=== PATIENT | male | born 1950 | race Caucasian/White ===

== ENCOUNTER 2019-11-15 16:11 | Emergency (ER) | payer OTHER ==
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
--- NOTE | 2019-11-15 17:43 | RAD REPORT ---
EXAM DESCRIPTION: Tony Feldman And Merrill (2 Views)11/15/2019 5:35 pm CLINICAL HISTORY: Chest pain COMPARISON: 2018 FINDINGS: The lungs appear clear of acute infiltrate. The heart is normal size. Old rib fractures v isualized. Chronic opacity overlies the right lung IMPRESSION: No acute abnormalities displayed
--- NOTE | 2019-11-15 17:59 | EDPHYS ---
Physician Documentation [facility] Name: Baldomero Arnold Jr Age: 69 yrs Sex: Male : 1950 Arrival Date: 11/15/2019 Time: 16:13 Bed 5 Private MD: Cheikh Olivera ED Physician Rajeev Larsen HPI: 11/14 17:56 This 69 yrs old Male presents to ER via Ambulatory with complaints of Fall ma2 Injury, Rib Pain. 17:56 Onset: The symptoms/episode began/occurred suddenly, 1 hour(s) ago. Severity of ma2 symptoms: At their worst the symptoms were mild, in the emergency department the symptoms are unchanged. The patient has experienced a previous episode. Historical: - Allergies: 16:44 No Known Allergies; ca1 - PMHx: 16:44 Hyperlipidemia; Hypertension; Crohn's; ca1 - PSHx: 16:44 Colostomy; ca1 - Immunization history:: Adult Immunizations up to date. - Social history:: Smoking status: Patient denies any tobacco usage or history of. - Family history:: not pertinent. ROS: 17:56 Constitutional: Negative for fever, chills, and weight loss. ma2 17:56 All other systems are negative. Exam: 17:56 Constitutional: This is a well developed, well nourished patient who is awake, alert, ma2 and in no acute distress. ENT: Nares patent. No nasal discharge, no septal abnormalities noted. Tympanic membranes are normal and external auditory canals are clear. Oropharynx with no redness, swelling, or masses, exudates, or evidence of obstruction, uvula midline. Mucous membranes moist. Neck: Trachea midline, no thyromegaly or masses palpated, and no cervical lymphadenopathy. Supple, full range of motion without nuchal rigidity, or vertebral point tenderness. No Meningismus. Chest/axilla: ttp over left lateral ribs 9-10Normal chest wall appearance and motion. Nontender with no deformity. No lesions are appreciated. Cardiovascular: Regular rate and rhythm with a normal S1 and S2. No gallops, murmurs, or rubs. Normal PMI, no JVD. No pulse deficits. Respiratory: Lungs have equal breath sounds bilaterally, clear to auscultation and percussion. No rales, rhonchi or wheezes noted. No increased work of breathing, no retractions or nasal flaring. Abdomen/GI: Soft, non-tender, with normal bowel sounds. No distension or tympany. No guarding or rebound. No evidence of tenderness throughout. MS/ Extremity: Pulses equal, no cyanosis. Neurovascular intact. Full, normal range of motion. Neuro: Awake and alert, GCS 15, oriented to person, place, time, and situation. Cranial nerves II-XII grossly intact. Motor strength 5/5 in all extremities. Sensory grossly intact. Cerebellar exam normal. Normal gait. Vital Signs: 16:41 BP 153 / 63; Pulse 61; Resp 14 S; Temp 98.5(TE); Pulse Ox 98% on R/A; Weight 86.18 kg ca1 (R); Height 5 ft. 10 in. (177.80 cm) (R); Pain 5/10; 17:54 BP 144 / 61; Pulse 54; Resp 16; Pulse Ox 98% on R/A; ca1 16:41 Body Mass Index 27.26 (86.18 kg, 177.80 cm) ca1 MDM: 16:33 Patient medically screened. ma2 17:56 Differential diagnosis: abrasion, contusion. Data reviewed: vital signs, nurses notes. ma2 Counseling: I had a detailed discussion with the patient and/or guardian regarding: the historical points, exam findings, and any diagnostic results supporting the discharge/admit diagnosis, the presence of at least one elevated blood pressure reading (>120/80) during this emergency department visit, the need for outpatient follow up. Response to treatment: the patient's symptoms have markedly improved after treatment. 11/14 17:14 Order name: Chest Pa And Lat (2 Views) XRAY; Complete Time: 17:56 ca1 Administered Medications: 17:54 Drug: [place] 10 mg-325 mg 1 tabs {Note: rass 0.} Route: PO; ca1 18:12 Follow up: Response: No adverse reaction; Pain is decreased; RASS: Alert and Calm (0) ca1 Disposition: 11/15/19 17:59 Discharged to Home. Impression: Other chest pain - muscle pain chest wall pain. - Condition is Stable. - Discharge Instructions: Chest Wall Pain, [id number]. - Prescriptions for Diclofenac Sodium 75 mg Oral Tablet Sustained Release - take 1 tablet by ORAL route 2 times per day; 30 tablet. - Medication Reconciliation Form, Thank You Letter, Antibiotic Education, Prescription Opioid Use form. - Follow up: Private Physician; When: Tomorrow; Reason: Continuance of care. Signatures: Dispatcher [employer] Rajeev Quevedo MD MD ma2 Dee Scruggs RN RN ca1 Corrections: (The following items were deleted from the chart) 18:22 17:59 11/15/2019 17:59 Discharged to Home. Impression: Other chest pain - muscle pain ca1 chest wall pain. Condition is Stable. Forms are Medication Reconciliation Form, Thank You Letter, Antibiotic Education, Prescription Opioid Use. Follow up: Private Physician; When: Tomorrow; Reason: Continuance of care. ma2
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
[2019-11-15] MEDS ORDERED: HYDROCODONE/APAP 10/325 TAB ONE (18:03)
[2019-11-16 15:29] VITALS: TEMP 98.5; O2SAT 98
[2019-11-16 15:30] VITALS: BP 144/61
== END 2019-11-15 18:22 | disposition home or self-care (01) ==
LOC: ER 16:11
DX: R07.89 Other chest pain (principal); I10 Essential (primary) hypertension; V18.0XXA Pedal cycle driver injured in noncollision transport accident in nontraffic accident, initial encounter
CPT/HCPCS: 71046; 99284